=== PATIENT | male | born 1965 | race Caucasian/White ===

== ENCOUNTER 2025-05-24 10:03 | Outpatient (CLI) | payer OTHER, SELFPAY ==
[2025-05-24 18:17] LABS: Basophils % 0.7 % (0.1-2.0); Eosinophils # 0.1 Kmm3 (0.0-0.4); Eosinophils % 1.3 % (0.1-12.0); Hematocrit 45.7 % (42.0-52.0); Hemoglobin 15.2 g/dL (14.1-18.0); Immature Granulocytes # 0.01 10^3uL; Immature Granulocytes % 0.2 %; Lymphocytes # 1.5 K/mm3 (0.7-4.5); Lymphocytes % 27.2 % (10-50); Mean Corpuscular HGB Conc 33.3 g/dL (31.8-35.4); Mean Corpuscular Volume 81.3 fl (80-94); Mean Platelet Volume 10.6 fl (7.4-10.4); Monocytes # 0.5 K/mm3 (0.1-1.0); Monocytes % 8.3 % (1.7-9.3); Neutrophils # 3.5 K/mm3 (1.8-7.8); Neutrophils % 62.3 % (37.0-80.0); Nucleated Red Blood Cells # 0 10^3/uL; Nucleated Red Blood Cells % 0 %; Platelet Count 207 K/mm3 (142-424); Red Blood Count 5.62 M/mm3 (4.60-6.20); Red Cell Distribution Width 12.5 % (11.5-17.5); Red Cell Distribution Width-SD 36.9 fL; White Blood Count 5.6 K/mm3 (4.8-10.8)
[2025-05-24 19:17] LABS: Alanine Aminotransferase 21 U/L (12-78); Albumin Level 4.8 g/dl (3.5-5.0); Albumin/Globulin Ratio 1.8 (1.1-1.8); Alkaline Phosphatase 73 U/L (38-126); Aspartate Amino Transferase 25 U/L (17-59); Bilirubin,Total 0.6 mg/dl (0.2-1.3); Blood Urea Nitrogen 18 mg/dl (9-20); Calcium 9.7 mg/dl (8.4-10.2); Carbon Dioxide 29 mmol/L (22.0-30.0); Chloride 101 mmol/L (98-107); Chol/HDL Ratio 7.2 (1-3.5); Cholesterol 296 mg/dl (140-200); Estimated Glomerular Filt Rate 86 ml/min (>60); GFR (African American) 105 ML/MIN (>60); Globulin 2.6 g/dL (1.3-3.2); Glucose 95 mg/dl (74-100); HDL Cholesterol 41 mg/dl (40-60); Sodium 138 mmol/L (136-145); Total Protein,Serum 7.4 g/dl (6.3-8.2)
[2025-05-24 19:19] LABS: Triglycerides 463 mg/dl (30-150)
[2025-05-24 19:26] LABS: 25-OH Vitamin D, Total 24.5 ng/mL (30-100)
[2025-05-24 19:28] LABS: Direct LDL Cholesterol 174.51 mg/dL (100-129)
[2025-05-24 19:43] LABS: Prostate Specific Ag Screen 0.3 ng/ml (0.0-4.0); Thyroid Stimulating Hormone 1.44 uIU/mL (0.465-4.68)
--- OUTSIDE RECORDS SUMMARY | 2025-05-26 10:12 | XMS_ITS | Clinical Summary ---
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 35912612 (SNOMED CT) Active 02/17 Mary Grace Mirza Abdominal aortic aneurysm without rupture AAA ruptured 91517872 (SNOMED CT) Active 02/17 Mary Grace Hermes Ruptured abdominal aortic aneurysm Benign Essential Hypertension 18012758 (SNOMED CT) Active 02/17 Mary Rgaceshaji Mirza Benign hypertension Nicotine dependence, cigarettes F17.210 (ICD-10-CM ) Active 02/16 Elliott Dinh Nicotine dependence, cigarettes, uncomplicated Medications Medication Instructions Start Date Stop Date Generic Name [facility] Provider DOXYCYCLINE HYCLATE 100 MG CAPS take 1 cap po BID for 30 days DOXYCYCLINE HYCLATE 72979937107 Elliott Dinh ZANAFLEX 4 MG ORAL CAPSULE take 1 cap po q8h PRN TIZANIDINE HCL 95486919138 Elliott Dinh LOPRESSOR 100 MG TABS take 1 tab po BID METOPROLOL TARTRATE 75068563251 Elliott Dinh GABAPENTIN 400 MG CAPS take 1 cap po TID GABAPENTIN 06058533178 Elliott Dinh BUPRENORPHINE HCL-NALOXONE HCL 8-2 MG SUBL take 2 tabs subL daily BUPRENORPHINE HCL-NALOXONE HCL [id number] Elliott Dinh Medications Administered No information available. Allergies, Adverse Reactions, Alerts Allergy Name Reaction Description Start Date Severity Statu s Provider LIDOCAINE Critical Active Elliott Dinh Results No information available. Plan of Care No information available. Procedures No information available. Vital Signs No information available. Immunizations No information available. Advance Directives No information available.
== END 2025-05-24 23:59 | disposition home or self-care (01) ==
LOC: LAB.DROPOF 05-26 10:03
PROVIDERS: PCP Family Medicine; Visit Provider Family Medicine
DX: E55.9 Vitamin D deficiency, unspecified (principal); I10 Essential (primary) hypertension; R53.83 Other fatigue; Z12.5 Encounter for screening for malignant neoplasm of prostate
CPT/HCPCS: 80053; 80061; 82306; 83036; 84443; 85025; G0103

== ENCOUNTER 2025-06-08 07:54 | Outpatient (CLI) | payer OTHER, SELFPAY ==
--- OUTSIDE RECORDS SUMMARY | 2025-06-02 12:13 | XMS_ITS | Encounter Summary ---
Author Organization Healthcare Address [address] [place] [address] Care Team Providers Care Splicer Helper Name Role Phone Pcp, No Primary Care Provider Roz Salazar Unavailable Unavailable Beronica Chavarria DMD Unavailable [phone] Reason for Referral * Consultation (Routine) - Authorized Specialty Diagnoses / Procedures Referred By Pancho arreaga Referred To Contact Sports Medicine Diagnoses Pain of left heel Acute pain of left knee Myranda Jain PA [address] [place] [address] Phone: tel: fax: [facility] [address] [place] [address], [address] [place] [address] Phone: tel: fax: Referral ID Status Reason Start Date Expiration Date Visits Requested Visits Authorized [id number] Authorized Specialty Services Required 06/02/2025 12/02/2026 1 1 Reason for Visit * Reason Comments Leg Pain Encounter Details Date Type Department Care Team (Late st Contact Info) Description 06/02/2025 12:13 PM EDT - 06/02/2025 2:46 PM EDT Emergency [facility] Emergency Department [address] [place] [id number] Pain of left heel (Primary Dx); Acute pain of left knee Discharge Disposition: Home or Self Care Social History Tobacco Use Types Packs/Day Years Used Date Smoking Tobacco: Never Smokeless Tobacco: Never Alcohol Use Standard Drinks/Week Comments No 0 (1 standard drink = 0.6 oz pur e alcohol) Sex and Gender Information Value Date Recorded Sex Assigned at Not on file Legal Sex Male 6:19 PM EDT Gender Identity Not on file Sexual Orientation Not on file documented as of this encounter Last Filed Vital Signs Vital Sign Reading Time Taken Comments Blood Pressure 172/78 06/02/2025 2:46 PM EDT endorses history, denies acute symptoms, GCS 15,agreeable to dc Pulse 64 06/02/2025 2:46 PM EDT Temperature 36.7 C (98.1 F) 06/02/2025 2:46 PM EDT Respiratory Rate 18 06/02/2025 2:46 PM EDT Oxygen Saturation 100% 06/02/2025 2:4 6 PM EDT Inhaled Oxygen Concentration - - Weight 95 kg (209 lb 7 oz) 06/02/2025 1 2:10 PM EDT Height 180.3 cm (5' 11 ) 06/02/2025 12: 10 PM EDT Body Mass Index 29.21 06/02/2025 12:10 PM EDT documented in this encounter Functional Status * Calculated C-SSRS Risk Score (Lifetime/Recent) Answer Date of Assessment Author No Risk Indicated 06/02/2025 1:03 PM EDT Rajwinder Barraza RN * Question Answer Date of Assessment Author 1. Wish to be (Past 1 Month) No 025 1:03 PM EDT Rajwinder Barraza RN 2. Non-Specific Active Suici ulysses Thoughts (Past 1 Month) No 06/02/2025 1:03 PM EDT Rajwinder Barraza RN 6. Suicidal Behavior (Lifetime) No 1:03 PM EDT Rajwinder Barraza RN documented as of this encounter Discharge Instructions * Discharge Instructions* Myranda Jain PA - 06/02/2025 2:40 PM EDT Today you were seen for L knee and foot pain. At this time you do not have a clot in your L leg, also called a DVT. There is no fracture found on your xrays today. I have a high suspicion that you have plantar fasciitis, I have attached care instructions and placed referral to sports medicine. Return to the ED with worsening of symptoms, shortness of breath, chest pain, coughing up blood, inability to walk. documented in this encounter Medications at Time of Discharge buprenorphine-nal oxone (Suboxone) 8-[address] 2 tablets under the tongue 1 (one) time each day. documented as of this encounter Miscellaneous Notes * Aurora LoeraFHMARIA LUISA - Myranda Jain PA - 06/02/2025 2:38 PM EDT Images from the original note were not included. [id number] Heel Spurs The plantar fascia is a thick, fibrous layer of tissue that covers the bones on the bottom of your foot. It holds the foot bones in an arched position. Plantar fasciitis is a painful swelling of the plantar fascia. A heel spur is an overgrowth of bone (calcium deposit) where the plantar fascia attaches to the heel bone. The heel spur itself usually doesn?t cause pain. But the heel spur might be a sign of plantar fasciitis, which may cause your foot pain. Plantar fasciitis can develop slowly or suddenly. It usually affects 1 foot at a time. Heel pain can feel sharp, like a knife sticking into the bottom of your foot. You may feel pain after exercising, long-distance jogging, stair climbing, long periods of standing, or after standing up. Risk factors for plantar fasciitis include arthritis, diabetes, obesity or recent weight gain, flatfoot, and having high arches. Wearing high heels, loose shoes, or shoes with poor arch support addsto the risk. Foot pain is usually worse in the morning. But it improves with walking. By the end of the day there may be a dull aching. Treatment includes short-term rest and controlling inflammation. It may takeup to 10 months before all symptoms go away. But symptoms can improve in most people with plantar fasciitis in 2 months after initial treatment. In rare cases, you may need a steroid shot (injection) in your foot, or surgery. Home care ?? Weight loss can help with healing if you're overweight. ?? Choose supportive shoes with good arch support and shock absorbency. Replace athletic shoes whenthey become worn out. Don't walk or run barefoot. Don't wear flat shoes. ?? Premade or custom-fitted shoe inserts may be helpful. Inserts made of silicone seem to be the most effective. Custom-made inserts can be provided by a telesales specialist, physical therapist, or orthopedist. ?? Premade or custom-made night splints keep the heel stretched out while you sleep. They may prevent morning pain. ?? Don't do activities that stress the feet, such as jogging, prolonged standing or walking, or contact sports. ?? First thing in the morning and before sports, stretch the bottom of your foot. Gently flex your ankle so the toes move toward your knee. ?? Icing may help control heel pain. Apply an ice pack to the heel for 10 to 20 minutes 3 to 4 times a day to relieve symptoms. Or ice your heel after a severe flare-up of symptoms. To make an ice pack, put ice cubes in a plastic bag that seals at the top. Wrap the bag in a thin towel or cloth before using. ?? You may use qovz-bdv-odiqiai pain medicine to control pain, unless another medicine was prescribed. Anti-inflammatory pain medicines, such as ibuprofen or naproxen, may work better than acetaminophen. If you have chronic liver or kidney disease, ever had a stomach ulcer or gastrointestinal bleeding or take blood thinners, talk with your health care provider before using these medicines. ?? Shoe inserts, a night splint, or a special boot may be needed. Use these as directed by your provider. ?? Stretching exercises to increase flexibility may be advised by a physical therapist to do at home. Follow-up care Follow up with your health care provider, physical therapist, or telesales specialist as advised. When to get medical advice Contact your health care provider right away if either of these occur: ?? The pain gets worse. ?? There is no relief after a few weeks of home treatment. Last Reviewed Date: 2024 00:00:00 ?? [id number] [employer]. All rights reserved. This information is not intended as a substitute for professional medical care. Always follow your healthcare professional's instructions. * Aurora Bartlett - Myranda Jain PA - 06/02/2025 2:38 PM EDT Images from the original note were not included. [id number] Plantar Fasciitis The ?plantar fascia? is a thick fibrous layer of tissue that covers the bones on the bottom of yourfoot. It supports the foot bones in an arched position. ?Plantar fasciitis? is a painful inflammation of the plantar fascia. This can develop gradually or suddenly. It usually affects one foot at a time. Heel pain can be sharp and feel like a knife sticking in the bottom of your foot. Pain may occur after exercising, long distance jogging, stair climbing, long periods of standing, or after getting up from a seated position. Risk factors include arthritis, diabetes, obesity or recent weight gain, flat- foot, high arch, wearing high heels or loose shoes or shoes with a poor arch support. Foot pain from this condition is usually worse in the morning and improves with walking. By the endof the day there may be a dull aching. Treatment requires short-term rest and controlling inflammation. It may take up to nine months before all symptoms go away with the measures described below. Rarely, a steroid injection into the foot or surgery may be needed. Home care 1. If you are overweight, lose weight to promote healing. 2. Choose supportive shoes with good arch support and shock absorbency. Replace athletic shoes whenthey become worn out. Don?t walk or run barefoot. 3. Shoe inserts are an important part of treatment. These will provide optimal arch support. While you can buy qyw-vjt-zbotd shoe inserts inexpensively, the best ones are those made for you by a pipeline integrity engineer (telesales specialist). 4. Night splints (provided by a pipeline integrity engineer) keep the heel stretched out while you sleep and preventmorning pain. 5. Avoid activities that stress the feet: jogging, prolonged standing or walking, contact sports, etc. 6. First thing in the morning and before sports, stretch the bottom of your feet. Gently flex your ankle so the foot moves toward your knee. Place a large soup can on its side on the floor and place your bare foot over it. Roll the can back and forth using your foot. Do this at least 3 times a day to stretch your foot. 7. Icing may help control heel pain. Apply an ice pack (ice cubes in a plastic bag, wrapped in a towel) to the heel for 10-20 minutes as a preventive or after an acute flare of symptoms. You may repeat this every 1-2 hours as needed. 8. You may use acetaminophen (Tylenol) or ibuprofen (Motrin, Advil) to control pain, unless anothermedicine was prescribed. [Note: If you have chronic liver or kidney disease or ever had a stomach ulcer or GI bleeding, talk with your doctor before using these medicines.] Follow up Follow up with your doctor or a pipeline integrity engineer (telesales specialist) as advised by our staff. Call for an appointment if pain worsens or there is no relief after a few weeks of home treatment. Shoe inserts, a night splint or a special boot may be required. [Note: If X-rays were taken, they will be reviewedby a radiologist. You will be notified of any new findings that may affect your care.] Return to the Emergency Department or call your doctor if any of the following occurs: ?? Foot swelling or redness with increasing pain ?? [id number] [employer]. All rights reserved. This information is not intended as a substitute for professional medical care. Always follow your healthcare professional's instructions. This information has been modified by your health care provider with permission from the publisher. * ED Triage Notes - Fernanda Unger RN - 06/02/2025 12:02 PM EDT Pt c/o right leg pain and knee pain since yesterday. He also says he has been having spasms/cramps. documented in this encounter Plan of Treatment Scheduled Referrals Name Type Priority Associated Diagnoses Order Schedule Discharge Ambulatory referral to Orthopaedics Sports Medicine Outpatient Referral Routine Pain of left heel Acute pain of left knee 1 Occurrences starting 06/02/2025 until 12/04/2026 documented as of this encounter Procedures Procedure Name Priority Date/Time Associated Diagnosis Comments XR FOOT LEFT 3+ VIEWS STAT 06/02/2025 1:56 PM EDT XR ANKLE LEFT 3+ VIEWS STAT 1:56 PM EDT XR TIBIA FIBULA LEFT 2+ VIEWS STAT 06/02/2025 1:56 PM EDT XR KNEE LEFT 3 VIEWS STAT 06/02/2025 1:56 PM EDT VAS US VENOUS DUPLEX LOWER EXTREMITY UNILATERAL STAT 06/02/2025 1:29 PM EDT ED HIV 1/2 ANTIBODY/ANTIGEN SCREEN WITH REFLEX TO HIV I/II DIFFERENTIATION STAT 06/02/2025 1:06 PM EDT ED PROTOCOL HIV 1/2 ANTIBODY/ANTIGEN SCREEN W/REFLEX TO HIV 1/2 ANTIBODY DIFFERENTIATION STAT 06/02/2025 1:06 PM EDT HEPATITIS C ANTIBODY - ED W/REFLEX TO HCV QUANT PCR STAT 06/02/2025 1:06 PM EDT CBC WITH AUTO DIFFERENTIAL STAT 06/02/2025 1:06 PM EDT MAGNESIUM, PLASMA STAT 06/02/2025 1:0 6 PM EDT COMPREHENSIVE METABOLIC PANEL, PLASMA STAT 06/02/2025 1:06 PM EDT documented in this encounter Results * XR Ankle Left 3+ Views (06/02/2025 1:56 PM EDT) Anatomical Region Laterality Modality Lower Extremities, Ankle Left Digital Radiography Impressions 06/02/2025 2:04 PM EDT No acute osseous findings. Soft tissue swelling along the plantar heel. CRITICAL RESULT: No. COMMUNICATION: Per this written report. Preliminary report signed by Lalito Andersen MD on 06/02/2025 2:01 PM By electronically signing this report, I, the attending physician, attest that I have personally reviewed the images/data for the above examination(s) and agree with the final edited report. Drafted by Lalito Andersen MD on 06/02/2025 1:58 PM Final report signed by Alejo Perez MD on 06/02/2025 2:04 PM Narrative 06/02/2025 2:04 PM EDT CLINICAL INDICATION: pain with walking TECHNIQUE: XR FOOT LEFT 3+ VIEWS, XR ANKLE LEFT 3+ VIEWS, XR TIBIA FIBULA LEFT 2+ VIEWS, XR KNEE LEFT 3 VIEWS COMPARISON: None. FINDINGS: Left knee: No acute fracture or dislocation. No large suprapatellar effusion. Vascular calcifications. No soft tissue swelling. Left tibia/fibula: No acute fracture or dislocation. No soft tissue swelling. Vascular calcifications. Left ankle: No acute fracture or dislocation. Talar dome is intact and well aligned. No significant soft tissue swelling. Left foot: No acute fracture or dislocation. Mild soft tissue swelling along the plantar heel. Osteoarthrosis first MTP joint Procedure Note Alejo Perez MD - 06/02/2025 CLINICAL INDICATION: pain with walking TECHNIQUE: XR FOOT LEFT 3+ VIEWS, XR ANKLE LEFT 3+ VIEWS, XR TIBIA FIBULA LEFT 2+VIEWS, XR KNEE LEFT 3 VIEWS COMPARISON: None. FINDINGS: Left knee: No acute fracture or dislocation. No large suprapatellareffusion. Vascular calcifications. No soft tissue swelling. Left tibia/fibula: No acute fracture or dislocation. No soft tissueswelling. Vascular calcifications. Left ankle: No acute fracture or dislocation. Talar dome is intact andwell aligned. No significant soft tissue swelling. Left foot: No acute fracture or dislocation. Mild soft tissue swellingalong the plantar heel. Osteoarthrosis first MTP joint IMPRESSION: No acute osseous findings. Soft tissue swelling along the plantar heel. CRITICAL RESULT: No. COMMUNICATION: Per this written report. Preliminary report signed by Lalito Andersen MD on 06/02/2025 2:01 PM By electronically signing this report, I, the attending physician, attestthat I have personally reviewed the images/data for the aboveexamination(s) and agree with the final edited report. Drafted by Lalito Andersen MD on 06/02/2025 1:58 PM Final report signed by Alejo Perez MD on 06/02/2025 2:04 PM us Myranda COULTER IMG XR PROCEDURES Final R esult * XR Foot Left 3+ Views (06/02/2025 1:56 PM EDT) Anatomical Region Laterality Modality Lower Extremities, Foot Left Digital Radiography Impressions 06/02/2025 2:04 PM EDT No acute osseous findings. Soft tissue swelling along the plantar heel. CRITICAL RESULT: No. COMMUNICATION: Per this written report. Preliminary report signed by Lalito Andersen MD on 06/02/2025 2:01 PM By electronically signing this report, I, the attending physician, attest that I have personally reviewed the images/data for the above examination(s) and agree with the final edited report. Drafted by Lalito Andersen MD on 06/02/2025 1:58 PM Final report signed by Alejo Perez MD on 06/02/2025 2:04 PM Narrative 06/02/2025 2:04 PM EDT CLINICAL INDICATION: pain with walking TECHNIQUE: XR FOOT LEFT 3+ VIEWS, XR ANKLE LEFT 3+ VIEWS, XR TIBIA FIBULA LEFT 2+ VIEWS, XR KNEE LEFT 3 VIEWS COMPARISON: None. FINDINGS: Left knee: No acute fracture or dislocation. No large suprapatellar effusion. Vascular calcifications. No soft tissue swelling. Left tibia/fibula: No acute fracture or dislocation. No soft tissue swelling. Vascular calcifications. Left ankle: No acute fracture or dislocation. Talar dome is intact and well aligned. No significant soft tissue swelling. Left foot: No acute fracture or dislocation. Mild soft tissue swelling along the plantar heel. Osteoarthrosis first MTP joint Procedure Note Alejo Perez MD - 06/02/2025 CLINICAL INDICATION: pain with walking TECHNIQUE: XR FOOT LEFT 3+ VIEWS, XR ANKLE LEFT 3+ VIEWS, XR TIBIA FIBULA LEFT 2+VIEWS, XR KNEE LEFT 3 VIEWS COMPARISON: None. FINDINGS: Left knee: No acute fracture or dislocation. No large suprapatellareffusion. Vascular calcifications. No soft tissue swelling. Left tibia/fibula: No acute fracture or dislocation. No soft tissueswelling. Vascular calcifications. Left ankle: No acute fracture or dislocation. Talar dome is intact andwell aligned. No significant soft tissue swelling. Left foot: No acute fracture or dislocation. Mild soft tissue swellingalong the plantar heel. Osteoarthrosis first MTP joint IMPRESSION: No acute osseous findings. Soft tissue swelling along the plantar heel. CRITICAL RESULT: No. COMMUNICATION: Per this written report. Preliminary report signed by Lalito Andersen MD on 06/02/2025 2:01 PM By electronically signing this report, I, the attending physician, attestthat I have personally reviewed the images/data for the aboveexamination(s) and agree with the final edited report. Drafted by Lalito Andersen MD on 06/02/2025 1:58 PM Final report signed by Alejo Perez MD on 06/02/2025 2:04 PM Myranda COULTER IMG XR PROCEDURES Final R esult * XR Tibia Fibula Left 2+ Views (06/02/2025 1:56 PM EDT) Anatomical Region Laterality Modality Lower Extremities, Lower Leg Left Dig ital Radiography Impressions 06/02/2025 2:04 PM EDT No acute osseous findings. Soft tissue swelling along the plantar heel. CRITICAL RESULT: No. COMMUNICATION: Per this written report. Preliminary report signed by Lalito Andersen MD on 06/02/2025 2:01 PM By electronically signing this report, I, the attending physician, attest that I have personally reviewed the images/data for the above examination(s) and agree with the final edited report. Drafted by Lalito Andersen MD on 06/02/2025 1:58 PM Final report signed by Alejo Perez MD on 06/02/2025 2:04 PM Narrative 06/02/2025 2:04 PM EDT CLINICAL INDICATION: pain with walking TECHNIQUE: XR FOOT LEFT 3+ VIEWS, XR ANKLE LEFT 3+ VIEWS, XR TIBIA FIBULA LEFT 2+ VIEWS, XR KNEE LEFT 3 VIEWS COMPARISON: None. FINDINGS: Left knee: No acute fracture or dislocation. No large suprapatellar effusion. Vascular calcifications. No soft tissue swelling. Left tibia/fibula: No acute fracture or dislocation. No soft tissue swelling. Vascular calcifications. Left ankle: No acute fracture or dislocation. Talar dome is intact and well aligned. No significant soft tissue swelling. Left foot: No acute fracture or dislocation. Mild soft tissue swelling along the plantar heel. Osteoarthrosis first MTP joint Procedure Note Alejo Perez MD - 06/02/2025 CLINICAL INDICATION: pain with walking TECHNIQUE: XR FOOT LEFT 3+ VIEWS, XR ANKLE LEFT 3+ VIEWS, XR TIBIA FIBULA LEFT 2+VIEWS, XR KNEE LEFT 3 VIEWS COMPARISON: None. FINDINGS: Left knee: No acute fracture or dislocation. No large suprapatellareffusion. Vascular calcifications. No soft tissue swelling. Left tibia/fibula: No acute fracture or dislocation. No soft tissueswelling. Vascular calcifications. Left ankle: No acute fracture or dislocation. Talar dome is intact andwell aligned. No significant soft tissue swelling. Left foot: No acute fracture or dislocation. Mild soft tissue swellingalong the plantar heel. Osteoarthrosis first MTP joint IMPRESSION: No acute osseous findings. Soft tissue swelling along the plantar heel. CRITICAL RESULT: No. COMMUNICATION: Per this written report. Preliminary report signed by Lalito Andersen MD on 06/02/2025 2:01 PM By electronically signing this report, I, the attending physician, attsamuelthat I have personally reviewed the images/data for the aboveexamination(s) and agree with the final edited report. Drafted by Lalito Andersen MD on 06/02/2025 1:58 PM Final report signed by Alejo Perez MD on 06/02/2025 2:04 PM Myranda COULTER IMG XR PROCEDURES Final R esult * XR Knee Left 3 Views (06/02/2025 1:56 PM EDT) Anatomical Region Laterality Modality Lower Extremities, Knee Left Digital Radiography Impressions 06/02/2025 2:04 PM EDT No acute osseous findings. Soft tissue swelling along the plantar heel. CRITICAL RESULT: No. COMMUNICATION: Per this written report. Preliminary report signed by Lalito Andersen MD on 06/02/2025 2:01 PM By electronically signing this report, I, the attending physician, attest that I have personally reviewed the images/data for the above examination(s) and agree with the final edited report. Drafted by Lalito Andersen MD on 06/02/2025 1:58 PM Final report signed by Alejo Perez MD on 06/02/2025 2:04 PM Narrative 06/02/2025 2:04 PM EDT CLINICAL INDICATION: pain with walking TECHNIQUE: XR FOOT LEFT 3+ VIEWS, XR ANKLE LEFT 3+ VIEWS, XR TIBIA FIBULA LEFT 2+ VIEWS, XR KNEE LEFT 3 VIEWS COMPARISON: None. FINDINGS: Left knee: No acute fracture or dislocation. No large suprapatellar effusion. Vascular calcifications. No soft tissue swelling. Left tibia/fibula: No acute fracture or dislocation. No soft tissue swelling. Vascular calcifications. Left ankle: No acute fracture or dislocation. Talar dome is intact and well aligned. No significant soft tissue swelling. Left foot: No acute fracture or dislocation. Mild soft tissue swelling along the plantar heel. Osteoarthrosis first MTP joint Procedure Note Alejo Perez MD - 06/02/2025 CLINICAL INDICATION: pain with walking TECHNIQUE: XR FOOT LEFT 3+ VIEWS, XR ANKLE LEFT 3+ VIEWS, XR TIBIA FIBULA LEFT 2+VIEWS, XR KNEE LEFT 3 VIEWS COMPARISON: None. FINDINGS: Left knee: No acute fracture or dislocation. No large suprapatellareffusion. Vascular calcifications. No soft tissue swelling. Left tibia/fibula: No acute fracture or dislocation. No soft tissueswelling. Vascular calcifications. Left ankle: No acute fracture or dislocation. Talar dome is intact andwell aligned. No significant soft tissue swelling. Left foot: No acute fracture or dislocation. Mild soft tissue swellingalong the plantar heel. Osteoarthrosis first MTP joint IMPRESSION: No acute osseous findings. Soft tissue swelling along the plantar heel. CRITICAL RESULT: No. COMMUNICATION: Per this written report. Preliminary report signed by Lalito Andersen MD on 06/02/2025 2:01 PM By electronically signing this report, I, the attending physician, attestthat I have personally reviewed the images/data for the aboveexamination(s) and agree with the final edited report. Drafted by Lalito Andersen MD on 06/02/2025 1:58 PM Final report signed by Alejo Perez MD on 06/02/2025 2:04 PM us Myranda Cochranharshil COULTER IMG XR PROCEDURES Final R esult * VAS US Venous Duplex Lower Extremity Unilateral Left (06/02/2025 1:29 PM EDT) Anatomical Region Laterality Modality Lower Extremities Ultrasound Impressions 06/02/2025 1:36 PM EDT No DVT. CRITICAL RESULT: No. COMMUNICATION: Per this written report. Preliminary report signed by Lalito Andersen MD on 06/02/2025 1:34 PM By electronically signing this report, I, the attending physician, attest that I have personally reviewed the images/data for the above examination(s) and agree with the final edited report. Drafted by Lalito Andersen MD on 06/02/2025 1:34 PM Final report signed by Latisha Tomas MD on 06/02/2025 1:36 PM Narrative 06/02/2025 1:36 PM EDT CLINICAL INDICATION: acutely tender, no trauma, concern for DVT TECHNIQUE: Multiplanar zurita scale and Doppler vascular sonographic imaging of the deep veins of the left lower extremity(s), from groin to calf, without and with compression. Doppler imaging and spectral analysis was used to evaluate blood flow in vascular structures. COMPARISON: None. FINDINGS: The visualized deep veins demonstrate flow and are compressible. No evidence of deep venous thrombosis. Procedure Note Latisha Tomas MD - 06/02/2025 CLINICAL INDICATION: acutely tender, no trauma, concern for DVT TECHNIQUE: Multiplanar zurita scale and Doppler vascular sonographic imaging of thedeep veins of the left lower extremity(s), from groin to calf, without andwith compression. Doppler imaging and spectral analysis was used toevaluate blood flow in vascular structures. COMPARISON: None. FINDINGS: The visualized deep veins demonstrate flow and are compressible. Noevidence of deep venous thrombosis. IMPRESSION: No DVT. CRITICAL RESULT: No. COMMUNICATION: Per this written report. Preliminary report signed by Lalito Andersen MD on 06/02/2025 1:34 PM By electronically signing this report, I, the attending physician, attestthat I have personally reviewed the images/data for the aboveexamination(s) and agree with the final edited report. Drafted by Lalito Andersen MD on 06/02/2025 1:34 PM Final report signed by Latisha Tomas MD on 06/02/2025 1:36 PM Myranda A Cristobal COULTER CV VASCULAR PROCEDURES Fi nal Result * ED HIV 1/2 Antibody/Antigen Screen w/Reflex to HIV 1/2 Differentiation (06/02/2025 1:06 PM EDT) [facility] HIV 1 & 2 Antibody/Antigen Screen Non Reactive Non Reactive 06/02/2025 1:46 PM EDT [facility] Comment:Screening for HIV 1 & 2 antibodies, and P24 antigen is NONREACTIVE. No confirmatory testing is required. Blood Venous blood specimen / Unknown Venipuncture / Unknown 06/02/2025 1:06 PM EDT 06/02/2025 1:08 PM EDT Myranda A Cristobal PA LAB BLOOD ORDERABLES Denise l Result Performing Organization Address City/[facility]/ZIP Co de Phone Number [facility] [address] [place] [address] * Hepatitis C Antibody - ED (06/02/2025 1:06 PM EDT) [facility] Hepatitis C Antibody Negative Negative 06/02/2025 1:42 PM EDT [facility]ALTH[facility] Blood Venous blood specimen / Unknown Venipuncture / Unknown 06/02/2025 1:06 PM EDT 06/02/2025 1:08 PM EDT [facility] [employer] LAB BLOOD ORDERABLES Denise l Result Performing Organization Address City/[facility]/ZIP Co de Phone Number [facility] [address] [place] [address] * Magnesium (06/02/2025 1:06 PM EDT) [facility] Magnesium, Plasma 2.2 1.9 - 2.4 mg/dL 06/02/2025 1:29 PM EDT [facility] Blood Venous blood specimen / Unknown Venipuncture / Unknown 06/02/2025 1:06 PM EDT 06/02/2025 1:08 PM EDT us Myranda COULTER LAB BLOOD ORDERABLES Denise dennis Result [facility] [address] [place] [address] * CMP (06/02/2025 1:06 PM EDT) Pathologist [facility] Glucose, Plasma 80 74 - 99 mg/dL 06/02/2025 1:29 PM EDT [facility] BUN, Plasma 17 7 - 21 mg/dL 06/02/2025 1:29 PM EDT [facility] Creatinine, Plasma 1.03 0.70 - 1.20 mg/dL 06/02/2025 1:29 PM EDT [facility] BUN/Creatinine Ratio 17 06/02/2025 1:29 PM EDT [facility] Sodium, Plasma 138 136 - 145 mmol/L 06/02/2025 1:29 PM EDT [facility] Potassium, Plasma 4.6 3.6 - 4.9 mmol/L 06/02/2025 1:29 PM EDT [facility] Chloride, Plasma 104 97 - 107 mmol/L 06/02/2025 1:29 PM EDT [facility] CO2, Plasma 24 22 - 29 mmol/L 06/02/2025 1:29 PM EDT [facility] Anion Gap 10 6 - 16 mmol/L 06/02/2025 1:29 PM EDT [facility] Total Calcium, Plasma 9.1 8.9 - 10.2 mg/dL 06/02/2025 1:29 PM EDT [facility] Total Protein 7.1 6.3 - 7.9 g/dL 06/02/2025 1:29 PM EDT [facility] Albumin, Plasma 4.6 3.5 - 5.2 g/dL 06/02/2025 1:29 PM EDT [facility] AST, Plasma 23 10 - 50 U/L 06/02/2025 1:29 PM EDT [facility] ALT, Plasma 18 10 - 50 U/L 06/02/2025 1:29 PM EDT [facility] Alkaline Phosphatase, Plasma 92 40 - 115 U/L 06/02/2025 1:29 PM EDT [facility] Total Bilirubin, Plasma 0.6 0.2 - 1.1 mg/dL 06/02/2025 1:29 PM EDT [facility] eGFRcr 83.7 mL/min/1.7 3m*2 06/02/2025 1:29 PM EDT [facility] Comment:Reported eGFRcr in m L/min/1.73m2 is based the CKD-EPI 2020 equation that does not use a race coefficient. Blood Venous blood specimen / Unknown Venipuncture / Unknown 06/02/2025 1:06 PM EDT 06/02/2025 1:08 PM EDT Myranda COULTER LAB BLOOD ORDERABLES Denise dennis Result [facility] [address] [place] [id number] * CBC w/diff (06/02/2025 1:06 PM EDT) WBC Count 6.93 3.70 - 10.30 10*3/uL LAB HEMATOLOGY METHOD 06/02/2025 1:11 PM EDT [facility] RBC Count 5.29 4.60 - 6.10 10*6/uL LAB HEMATOLOGY METHOD 06/02/2025 1:11 PM EDT [facility] HGB 14.2 13.7 - 17.5 g/dL LAB HEMATOLOGY METHOD 06/02/2025 1:11 PM EDT [facility] HCT 43.3 40.0 - 51.0 % LAB HEMATOLOGY METHOD 06/02/2025 1:11 PM EDT [facility] Platelet Count 177 155 - 369 10*3/uL LAB HEMATOLOGY METHOD 06/02/2025 1:11 PM EDT [facility] MCV 82 79 - 98 fL LAB HEMATOLOGY METHOD 06/02/2025 1:11 PM EDT [facility] MCH 26.8 26.0 - 32.0 pg LAB HEMATOLOGY METHOD 06/02/2025 1:11 PM EDT [facility] MCHC 32.8 30.7 - 35.5 g/dL LAB HEMATOLOGY METHOD 06/02/2025 1:11 PM EDT [facility] RDW 12.5 11.5 - 14.5 % LAB HEMATOLOGY METHOD 06/02/2025 1:11 PM EDT [facility] MPV 10.3 8.8 - 12.5 fL LAB HEMATOLOGY METHOD 06/02/2025 1:11 PM EDT [facility] nRBC 0.0 <=0.0 per 100 WBCs LAB HEMATOLOGY METHOD 06/02/2025 1:11 PM EDT [facility] Differential Type Automated LAB HEMATOLOGY METHOD 06/02/2025 1:11 PM EDT [facility] Neutrophils % 67 % LAB HEMATOLOGY METHOD 06/02/2025 1:11 PM EDT [facility] Lymphocytes % 23 % LAB HEMATOLOGY METHOD 06/02/2025 1:11 PM EDT [facility] Monocytes % 8 % LAB HEMATOLOGY METHOD 06/02/2025 1:11 PM EDT [facility] Eosinophils % 1 % LAB HEMATOLOGY METHOD 06/02/2025 1:11 PM EDT [facility] Basophils % 1 % LAB HEMATOLOGY METHOD 06/02/2025 1:11 PM EDT [facility] Immature Granulocytes % 0 % LAB HEMATOLOGY METHOD 06/02/2025 1:11 PM EDT [facility] Neutrophils Absolute 4.66 1.60 - 6.10 10*3/uL LAB HEMATOLOGY METHOD 06/02/2025 1:11 PM EDT [facility] Lymphocytes Absolute 1.58 1.20 - 3.90 10*3/uL LAB HEMATOLOGY METHOD 06/02/2025 1:11 PM EDT [facility] Monocytes Absolute 0.55 0.30 - 0.90 10*3/uL LAB HEMATOLOGY METHOD 06/02/2025 1:11 PM EDT [facility] Eosinophils Absolute 0.06 0.00 - 0.50 10*3/uL LAB HEMATOLOGY METHOD 06/02/2025 1:11 PM EDT [facility] Basophils Absolute 0.05 0.00 - 0.10 10*3/uL LAB HEMATOLOGY METHOD 06/02/2025 1:11 PM EDT [facility] Immature Granulocytes Absolute 0.03 0.00 - 0.06 10*3/uL LAB HEMATOLOGY METHOD 06/02/2025 1:11 PM EDT [facility] Blood Venous blood specimen / Unknown Venipuncture / Unknown 06/02/2025 1:06 PM EDT 06/02/2025 1:08 PM EDT Narrative [facility] - 06/02/2025 1:11 PM EDT Therapeutic decision making should be based on absolute values, rather than percentages. us Myranda COULTER LAB BLOOD ORDERABLES Denise dennis Result [facility] [address] [place] [address] documented in this encounter Visit Diagnoses Diagnosis Pain of left heel- Primary Acute pain of left knee documented in this encounter Active and Recently Administered Medications Care Teams Splicer Helper Relationship Specialty Start Date End Date Pcp, No [address] [place] [id number] PCP - General Family Medicine 12/09/24 Roz Lopez Dental Student Dental Board Layer 12/09/24 Beronica Chavarria, JANY [address] [place] [phone] Dentist 12/09/24 documented as of this encounter
--- NOTE | 2025-06-08 08:00 | US_ITS ---
FINAL REPORT CLINICAL HISTORY: AAA repair COMPARISON: None FINDINGS: Sonographic images were obtained of the abdominal aorta. By history, the patient has had an abdominal aortic aneurysm repair. The abdominal aorta measures up to 3.4 cm in greatest dimension, however, there also appears to be an echogenic intraluminal focus that may represent the stent.. The common iliac arteries are not well-visualized.. IMPRESSION: Limited examination, as described above. CT of the abdomen and pelvis is much more accurate in evaluating possible aortic aneurysm or stent appearance. Reviewed, Interpreted and Dictated by Farzad Llamas MD Transcribed by Tara Esquivel Authenticated and [facility]
--- OUTSIDE RECORDS SUMMARY | 2025-06-08 08:04 | XMS_ITS | Clinical Summary ---
Author Organization [facility] Address [address] [place] [address] Phone Care Team Providers Care Felled Seam Operator Chainstitch Name Role Phone Aldo Dhillon MD Unavailable [ ] Conditions or Problems Problem Name Problem Code Onset Date Status Entry Date Provider Comment Standard Description Annotate Testicular pain, right 85177513 (SNOMED CT) Active 02/17 Mary Grace Mirza Pain in testicle Mycotic infection, unspecified 7573433 (SNOMED CT) Active 02/17 Mary Grace Mirza Mycosis AAA without mention of rupture 18287383 (SNOMED CT) Active 02/17 Mary Grace Mirza Abdominal aortic aneurysm without rupture AAA ruptured 79451123 (SNOMED CT) Active 02/17 Mary Grace Hermes Ruptured abdominal aortic aneurysm Benign Essential Hypertension 96524787 (SNOMED CT) Active 02/17 Mary Graceshaji Mirza Benign hypertension Nicotine dependence, cigarettes F17.210 (ICD-10-CM ) Active 02/16 Elliott Dinh Nicotine dependence, cigarettes, uncomplicated Medications Medication Instructions Start Date Stop Date Generic Name [facility] Provider DOXYCYCLINE HYCLATE 100 MG CAPS take 1 cap po BID for 30 days DOXYCYCLINE HYCLATE 31826148665 Elliott Dinh ZANAFLEX 4 MG ORAL CAPSULE take 1 cap po q8h PRN TIZANIDINE HCL 19575707791 Elliott Dinh LOPRESSOR 100 MG TABS take 1 tab po BID METOPROLOL TARTRATE 12838696821 Elliott Dinh GABAPENTIN 400 MG CAPS take 1 cap po TID GABAPENTIN 81216964076 Elliott Dinh BUPRENORPHINE HCL-NALOXONE HCL 8-2 MG SUBL take 2 tabs subL daily BUPRENORPHINE HCL-NALOXONE HCL [id number] Elliott Dinh Medications Administered No information available. Allergies, Adverse Reactions, Alerts Allergy Name Reaction Description Start Date Severity Statu s Provider LIDOCAINE Critical Active Elliott Dinh Results No information available. Plan of Care No information available. Procedures No information available. Vital Signs No information available. Immunizations No information available. Advance Directives No information available.
--- OUTSIDE RECORDS SUMMARY | 2025-06-08 08:09 | XMS_ITS | Encounter Summary ---
Author Organization Healthcare Address [address] [place] [address] Care Team Providers Care Aerial Survey Technician Name Role Phone Pcp, No Primary Care Provider Roz Salazar Unavailable Unavailable Beronica Chavarria DMD Unavailable [phone] Encounter Details Date Type Department Care Team (Late st Contact Info) Description 05/15/2025 Telephone [facility] registered diet technician Clinic [address] [phone] Dental, Surgeon, [address] [place] [address] Social History Tobacco Use Types Packs/Day Years [...] on file documented as of this encounter Miscellaneous Notes * Telephone Encounter - Hina Parada - 05/15/2025 2:53 PM EDT Called pt to see if he wanted to reschedule surgery he cancelled on 03/01 but no answer so left vm message to return call/kw documented in this encounter Plan of Treatment Not on file documented as of this encounter Visit Diagnoses Not on filedocumented in this encounter Care Teams Aerial Survey Technician Relationship Specialty Start Date End Date Pcp, No [address] [place] [address] PCP - General Family Medicine 12/09/24 Roz Lopez Dental Student Dental Supervisor [employer] 12/09/24 Beronica Chavarria, DMD [address] [place] [phone] Dentist 12/09/24 documented as of this encounter
--- OUTSIDE RECORDS SUMMARY | 2025-06-08 08:09 | XMS_ITS | Clinical Summary ---
Author Organization Healthcare Address [address] [place] [address] Care Team Providers Care Stock Clerk Name Role Phone Pcp, No Primary Care Provider UnavailRoz Ralph Unavailable Unavailable Beronica Chavarria DMD Unavailable [phone] Allergies Active Allergy Reactions Criticality Noted Date Comments Lidocaine Hives,Itching,Rash,U nknown - Patient states they do not know rxn details High 11/17/2014 Medications buprenorphine-n aloxone (Suboxone) 8-[address] 2 tablets under the tongue 1 (one) time each day. Active tiZANidine (Zanaflex) 4 MG capsule Take 1 capsule by mouth 2 times a day as needed for muscle spasms. 8 capsule 5 Active naloxone (Narcan) 4 mg/0.1 mL nasal spray 1. Give 1 spray in nostril for no/slow breathing or cannot wake after opioid use 2. Call 911 3. Repeat in other nostril if symptoms continue 1 each 5 Active naloxone (Narcan) 0.4 MG/ML injection Inject 5 mL into the muscle as needed for opioid reversal. Call 911. May repeat every 2 minutes as needed until help arrives. 1 mL 5 Active Encounters Date Type Department Care Team Description 06/06/2025 Telephone [facility] [address] [phone] Dental, Surgeon, 06/02/2025 12:13 PM EDT - 06/02/2025 2:46 PM EDT Emergency P[facility] S Emergency Department [address] [facility] [place] [address] Pain of left heel (Primary Dx); Acute pain of left knee Discharge Disposition: Home or Self Care 06/02/2025 Travel 05/15/2025 Telephone [facility] [address] [phone] Dental, SurgeonMD 04/18/2025 Telephone [facility] [address] [phone] Dental, SurgeonMD from Last 3 Months Family History Medical History Relation Name Comments Other cancer Brother Heart failure Father Other cancer Father Other cancer Mother Relation Name Status Comments Brother Father Mother Social History Tobacco Use Types Packs/Day Years Used Date Smoking Tobacco: Never Smokeless Tobacco: Never Tobacco Cessation:Counseling Given: Not Answered Alcohol Use Standard Drinks/Week Comments No 0 (1 standard drink = 0.6 oz pur e alcohol) Sex and Gender Information Value Date Recorded Sex Assigned at Not on file Legal Sex Male 6:19 PM EDT Gender Identity Not on file Sexual Orientation Not on file Last Filed Vital Signs Vital Sign Reading [...] Mass Index 29.21 06/02/2025 12:10 PM EDT Plan of Treatment Health Maintenance Due Date Last Done Comments Dental Prophylaxis 1965 Dental X-Ray: Bitewings 1965 [facility]-Depression Screening 1965 [facility]-/Child/Adol SDOH Screenings 1965 [facility]-Obesity Intervention 1971 [facility]- SDOH Screenings 1983 [facility]-Adult SDOH Screenings 1983 [facility]-DTaP,Tdap,and Td Vaccine s (1 - Tdap) 1984 [facility]-Hepatitis B Vaccines (1 of 3 - 19+ 3-dose series) 1984 CT Colonography 2010 Colonoscopy 2010 FIT-DNA 2010 FIT 2010 FOBT 2010 Sigmoidoscopy 2010 [facility]-Colorectal Cancer Screening 2010 [facility]-Pneumococcal Vaccine: 50 + Years (1 of 1 - PCV) 2015 [facility]-Zoster Vaccines (1 of 2) 2015 [id number] Vaccine (3 - 2023- season) 2024 11/10/2022, 09/29/2022 [facility]-Influenza Vaccine (#1) 2025 Dental Oral Exam 08/21/2025 02/17/2025, 12/09/2024 Dental X-Ray: Full Mouth 12/10/2027 12/09/2024 [facility]-HIV Screening Completed 06/02/2025 [facility]-Hepatitis C Screening Completed 2024, 02/12/2018 HPV Vaccines Aged Out No longer eligi ble based on patient's age to complete this topic [facility]-HIB Vaccines Aged Out No longer e ligible based on patient's age to complete this topic [facility]-Hepatitis A Vaccines Aged Out No longer eligible based on patient's age to complete this topic [facility]-IPV Vaccines Aged Out No longer e ligible based on patient's age to complete this topic [facility]-Rotavirus Vaccines Aged Out No lo nger eligible based on patient's age to complete this topic Procedures Procedure Name Priority Date/Time Associated Diagnosis Comments XR ANKLE LEFT 3+ VIEWS STAT 1:56 PM EDT XR FOOT LEFT 3+ VIEWS STAT 06/02/2025 1:56 PM EDT XR TIBIA FIBULA LEFT [...] QUANT PCR STAT 06/02/2025 1:06 PM EDT MAGNESIUM, PLASMA STAT 06/02/2025 1:0 6 PM EDT COMPREHENSIVE METABOLIC PANEL, PLASMA STAT 06/02/2025 1:06 PM EDT CBC WITH AUTO DIFFERENTIAL STAT 06/02/2025 1:06 PM EDT COMPREHENSIVE ORAL EVALUATION - NEW OR ESTABLISHED PATIENT Routine 02/17/2025 1:00 PM EDT Dental caries PANORAMIC RADIOGRAPHIC IMAGE Routine 12/09/2024 8:30 AM EST Dental caries from Last 3 Months or Most Recently Relevant to Health Maintenance Results * XR Foot Left 3+ Views (06/02/2025 [...] XR PROCEDURES Final R esult * XR Ankle Left 3+ Views (06/02/2025 [...] Latisha Tomas MD on 06/02/2025 1:36 PM us Myranda COULTER CV VASCULAR PROCEDURES Fi nal Result * ED HIV 1/2 Antibody/Antigen Screen w/Reflex to HIV 1/2 Differentiation (06/02/2025 1:06 PM EDT) [facility] HIV 1 & 2 Antibody/Antigen Screen Non Reactive Non Reactive 06/02/2025 1:46 PM EDT [facility] Comment:Screening for HIV 1 & 2 antibodies, and P24 antigen is NONREACTIVE. No confirmatory testing is required. Blood Venous blood specimen / Unknown Venipuncture / Unknown 06/02/2025 1:06 PM EDT 06/02/2025 1:08 PM EDT Myranda COULTER LAB BLOOD ORDERABLES Denise l Result Performing Organization Address City/[facility]/ZIP Co de Phone Number [facility] [address] [place] [address] * Hepatitis C Antibody - ED (06/02/2025 1:06 PM EDT) [facility] Hepatitis C Antibody Negative Negative 06/02/2025 1:42 PM EDT [facility] Blood Venous blood specimen / Unknown Venipuncture / Unknown 06/02/2025 1:06 PM EDT 06/02/2025 1:08 PM EDT Myranda COULTER LAB BLOOD ORDERABLES Denise l Result Performing Organization Address City/[facility]/ZIP Co de Phone Number [facility] [address] [place] [address] * CBC w/diff (06/02/2025 1:06 PM EDT) [facility] WBC Count 6.93 3.70 - 10.30 10*3/uL LAB HEMATOLOGY METHOD 06/02/2025 1:11 PM EDT [facility] RBC Count 5.29 4.60 - 6.10 10*6/uL LAB HEMATOLOGY METHOD 06/02/2025 1:11 PM EDT [facility] HGB 14.2 13.7 - 17.5 g/dL LAB HEMATOLOGY METHOD 06/02/2025 1:11 PM EDT [facility] HCT 43.3 40.0 - 51.0 % LAB HEMATOLOGY METHOD 06/02/2025 1:11 PM EDT [facility] Platelet Count 177 155 - 369 10*3/uL LAB HEMATOLOGY METHOD 06/02/2025 1:11 PM EDT [facility] MCV 82 79 - 98 fL LAB HEMATOLOGY METHOD 06/02/2025 1:11 PM EDT [facility] MCH 26.8 26.0 - 32.0 pg LAB HEMATOLOGY METHOD 06/02/2025 1:11 PM EDT [facility] MCHC 32.8 30.7 - 35.5 g/dL LAB HEMATOLOGY METHOD 06/02/2025 1:11 PM EDT [facility] RDW 12.5 11.5 - 14.5 % LAB HEMATOLOGY METHOD 06/02/2025 1:11 PM EDT [facility] MPV 10.3 8.8 - 12.5 fL LAB HEMATOLOGY METHOD 06/02/2025 1:11 PM EDT [facility] nRBC 0.0 <=0.0 per 100 WBCs LAB HEMATOLOGY METHOD 06/02/2025 1:11 PM EDT [facility] Differential Type Automated LAB HEMATOLOGY METHOD 06/02/2025 1:11 PM EDT [facility] Neutrophils % 67 % LAB HEMATOLOGY METHOD 06/02/2025 1:11 PM EDT [facility] Lymphocytes % 23 % LAB HEMATOLOGY METHOD 06/02/2025 1:11 PM EDT [facility] Monocytes % 8 % LAB HEMATOLOGY METHOD 06/02/2025 1:11 PM EDT [facility] Eosinophils % 1 % LAB HEMATOLOGY METHOD 06/02/2025 1:11 PM EDT [facility] Basophils % 1 % LAB HEMATOLOGY METHOD 06/02/2025 1:11 PM EDT [facility] Immature Granulocytes % 0 % LAB HEMATOLOGY METHOD 06/02/2025 1:11 PM EDT [facility] Neutrophils Absolute 4.66 1.60 - 6.10 10*3/uL LAB HEMATOLOGY METHOD 06/02/2025 1:11 PM EDT [facility] Lymphocytes Absolute 1.58 1.20 - 3.90 10*3/uL LAB HEMATOLOGY METHOD 06/02/2025 1:11 PM EDT [facility] Monocytes Absolute 0.55 0.30 - 0.90 10*3/uL LAB HEMATOLOGY METHOD 06/02/2025 1:11 PM EDT [facility] Eosinophils Absolute 0.06 0.00 - 0.50 10*3/uL LAB HEMATOLOGY METHOD 06/02/2025 1:11 PM EDT [facility] Basophils Absolute 0.05 0.00 - 0.10 10*3/uL LAB HEMATOLOGY METHOD 06/02/2025 1:11 PM EDT [facility] Immature Granulocytes Absolute 0.03 0.00 - 0.06 10*3/uL LAB HEMATOLOGY METHOD 06/02/2025 1:11 PM EDT [facility] Blood Venous blood specimen / Unknown Venipuncture / Unknown 06/02/2025 1:06 PM EDT 06/02/2025 1:08 PM EDT Narrative [facility] - 06/02/2025 1:11 PM EDT Therapeutic decision making should be based on absolute values, rather than percentages. Myranda A CeQurCadenceMD LAB BLOOD ORDERABLES Denise l Result Performing Organization Address City/[facility] Co de Phone Number [facility] [address] [place] [address] * Magnesium (06/02/2025 1:06 PM EDT) Magnesium, Plasma 2.2 1.9 - 2.4 mg/dL 06/02/2025 1:29 PM EDT [facility] Blood Venous blood specimen / Unknown Venipuncture / Unknown 06/02/2025 1:06 PM EDT 06/02/2025 1:08 PM EDT Myranda A [employer] LAB BLOOD ORDERABLES Denise l Result Performing Organization Address City/[facility] Co de Phone Number [facility] [address] [place] [address] * CMP (06/02/2025 1:06 PM EDT) Glucose, Plasma 80 74 - 99 mg/dL 06/02/2025 1:29 PM EDT [facility] BUN, Plasma 17 7 - 21 mg/dL 06/02/2025 1:29 PM EDT [facility] Creatinine, Plasma 1.03 0.70 - 1.20 mg/dL 06/02/2025 1:29 PM EDT [facility] BUN/Creatinine Ratio 17 06/02/2025 1:29 PM EDT [facility] Sodium, Plasma 138 136 - 145 mmol/L 06/02/2025 1:29 PM EDT [facility] Potassium, Plasma 4.6 3.6 - 4.9 mmol/L 06/02/2025 1:29 PM EDT [facility] Chloride, Plasma 104 97 - 107 mmol/L 06/02/2025 1:29 PM EDT [facility] CO2, Plasma 24 22 - 29 mmol/L 06/02/2025 1:29 PM EDT [facility] Anion Gap 10 6 - 16 mmol/L 06/02/2025 1:29 PM EDT [facility] Total Calcium, Plasma 9.1 8.9 - 10.2 mg/dL 06/02/2025 1:29 PM EDT [facility] Total Protein 7.1 6.3 - 7.9 g/dL 06/02/2025 1:29 PM EDT [facility] Albumin, Plasma 4.6 3.5 - 5.2 g/dL 06/02/2025 1:29 PM EDT [facility] AST, Plasma 23 10 - 50 U/L 06/02/2025 1:29 PM EDT [facility] ALT, Plasma 18 10 - 50 U/L 06/02/2025 1:29 PM EDT [facility] Alkaline Phosphatase, Plasma 92 40 - 115 U/L 06/02/2025 1:29 PM EDT [facility] Total Bilirubin, Plasma 0.6 0.2 - 1.1 mg/dL 06/02/2025 1:29 PM EDT [facility] eGFRcr 83.7 mL/min/1.7 3m*2 06/02/2025 1:29 PM EDT [facility] Comment:Reported eGFRcr in m L/min/1.73m2 is based the CKD-EPI 2020 equation that does not use a race coefficient. Blood Venous blood specimen / Unknown Venipuncture / Unknown 06/02/2025 1:06 PM EDT 06/02/2025 1:08 PM EDT us Myranda COULTER LAB BLOOD ORDERABLES Denise dennis Result [facility] [address] [place] [id number] from Last 3 Months Insurance [facility] MEDICAID [facility] MEDICA[facility] Care Teams Stock Clerk Relationship Specialty Start Date End Date Pcp, No [address] [place] [address] PCP - General Family Medicine 12/09/24 Roz Lopez Dental Student Dental Confectionery Laboratory Manager 12/09/24 Beronica Chavarria, JANY [address] [phone] Dentist 12/09/24
--- OUTSIDE RECORDS SUMMARY | 2025-06-08 08:09 | XMS_ITS | Encounter Summary ---
Author Organization Healthcare Address [address] [place] [address] Care Team Providers Care Anesthesiologist Assistant Certified Name Role Phone Pcp, No Primary Care Provider Roz Salazar Unavailable Unavailable Beronica Chavarria DMD Unavailable [phone] Encounter Details Date Type Department Care Team ([facility] st Contact Info) Description 04/18/2025 Telephone [facility] [address] [phone] Dental, Surgeon, [address] [place] [address] Social History Tobacco Use Types Packs/Day Years [...] * Telephone Encounter - Hina Parada - 04/18/2025 10:45 AM EDT Called pt to see if he wanted to r/s his surgery for teeth exts that he cancelled on 03/01 but no answer so left vm message to return call/kw documented in this encounter Plan of Treatment Not on file documented as of this encounter Visit Diagnoses Not on filedocumented in this encounter Care Teams Anesthesiologist Assistant Certified Relationship Specialty Start Date End Date Pcp, No [address] [place] [address] PCP - General Family Medicine 12/09/24 Roz Lopez Dental Student Dental Plywood Factory Worker 12/09/24 Beronica Chavarria, DMD [address] [phone] Dentist 12/09/24 documented as of this encounter
--- OUTSIDE RECORDS SUMMARY | 2025-06-08 08:09 | XMS_ITS | Encounter Summary ---
Author Organization Healthcare Address [address] [place] [address] Care Team Providers Care Cutter In Name Role Phone Pcp, No Primary Care Provider Roz Salazar Unavailable Unavailable Beronica Chavarria DMD Unavailable [phone] Encounter Details Date Type Department Care Team (Late st Contact Info) Description 06/06/2025 Telephone [facility] [address] [phone] Dental, Surgeon, [address] [place] [address] Social History Tobacco Use Types Packs/Day Years [...] * Telephone Encounter - Hina Parada - 06/06/2025 10:35 AM EDT Called pt to r/s surgery, he said he has alot going on right now and will call us back to schedule/kw documented in this encounter Plan of Treatment Not on file documented as of this encounter Visit Diagnoses Not on filedocumented in this encounter Care Teams Cutter In Relationship Specialty Start Date End Date Pcp, No [address] [place] [address] PCP - General Family Medicine 12/09/24 Roz Lopez Dental Student Dental Rope Tier 12/09/24 Beronica Chavarria, DMD [address] [phone] Dentist 12/09/24 documented as of this encounter
--- OUTSIDE RECORDS SUMMARY | 2025-06-08 08:09 | XMS_ITS | Encounter Summary ---
Author Organization Healthcare Address [address] [place] [address] Care Team Providers Care Golf Instructor Name Role Phone Pcp, No Primary Care Provider Roz Salazar Unavailable Unavailable Beronica Chavarria DMD Unavailable [phone] Encounter Details Date Type Department Care Team (Latest Contact Info) Description 06/02/2025 Travel Social History Tobacco Use Types Packs/Day Years [...] on file documented as of this encounter Functional Status * Calculated C-SSRS Risk Score (Lifetime/Recent) Answer Date of Assessment Author No Risk Indicated 06/02/2025 1:03 PM EDT Rajwinder Barraza RN * Question Answer Date of Assessment Author 1. Wish to be (Past 1 Month) No 025 1:03 PM EDT Rajwinder Barraza RN 2. Non-Specific Active Suici ulysses Thoughts (Past 1 Month) No 06/02/2025 1:03 PM EDT Rajwinder Barraza, RN 6. Suicidal Behavior (Lifetime) No 1:03 PM EDT Rajwinder Barraza RN documented as of this encounter Plan of Treatment Not on file documented as of this encounter Visit Diagnoses Not on filedocumented in this encounter Care Teams Golf Instructor Relationship Specialty Start Date End Date Pcp, No [address] [place] [address] PCP - General Family Medicine 12/09/24 Roz Lopez Dental Student Dental Urgent Care Technician 12/09/24 Beronica Chavarria, DMD [address] [place] [phone] Dentist 12/09/24 documented as of this encounter
== END 2025-06-08 23:59 | disposition home or self-care (01) ==
LOC: RAD 07:54
PROVIDERS: PCP Family Medicine; Visit Provider Family Medicine
DX: Z98.890 Other specified postprocedural states (principal); Z86.79 Personal history of other diseases of the circulatory system
CPT/HCPCS: 76706